=== PATIENT | male | born 1990 | race Caucasian/White ===

== ENCOUNTER 2023-03-07 23:47 | Emergency (ER) | payer OTHER ==
[2023-03-08] MEDS ORDERED: FLUORESCEIN STRIPS 1 MG STRIP LEFT EYE ONE (00:16)
[2023-03-08] MEDS ORDERED: PROPARACAINE 0.5% OPHTH DROPS 15 ML BTL LEFT EYE STA (00:16)
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
[2023-03-08 01:54] VITALS: BP 143/78; PULSE 55; RESP 18; TEMP 98.5
== END 2023-03-08 01:53 | disposition home or self-care (01) ==
LOC: EC 23:47
DX: S05.02XA Injury of conjunctiva and corneal abrasion without foreign body, left eye, initial encounter (principal); I10 Essential (primary) hypertension; Z87.891 Personal history of nicotine dependence; Z88.0 Allergy status to penicillin; W22.8XXA Striking against or struck by other objects, initial encounter
CPT/HCPCS: 99283